=== PATIENT | male | born 1985 | race Caucasian/White ===

== ENCOUNTER → 2021-06-07 | Outpatient (CLI) | payer BC | END | disposition home or self-care (01) | LOC: RAD 12:22 | PROVIDERS: ATTEND Nurse Practitioner Family | DX: M25.562 Pain in left knee (principal) ==

== ENCOUNTER 2022-06-13 10:46 | Emergency (ER) | payer BC ==
[~2022-06-13] VITALS: Wt 156.5 kg
[2022-06-13] MEDS ORDERED: MEDROL DOSEPAK4 MG PO (12:17)
[2022-06-13] MEDS ORDERED: CYCLOBENZAPRINE10 MG PO (12:17)
== END 2022-06-13 12:21 | disposition home or self-care (01) ==
LOC: ED 10:46
DX: M54.50 Low back pain, unspecified (principal)

== ENCOUNTER 2022-12-07 11:12 | Emergency (ER) | payer BC ==
[~2022-12-07] VITALS: Wt 146.1 kg
[~2022-12-07 11:12] MED LIST: CYCLOBENZAPRINE10 MG PO; MEDROL DOSEPAK4 MG PO
[2022-12-07] MEDS ORDERED: PREDNISONE50 MG PO (12:58)
== END 2022-12-07 12:59 | disposition home or self-care (01) ==
LOC: ED 11:12
DX: T63.441A Toxic effect of venom of bees, accidental (unintentional), initial encounter (principal); Y92.89 Other specified places as the place of occurrence of the external cause

== ENCOUNTER → 2023-08-25 | Outpatient (CLI) | payer BC ==
[~2023-08-25] MED LIST changes: +PREDNISONE50 MG PO
== END | disposition home or self-care (01) ==
LOC: US 10:52
PROVIDERS: ATTEND Physician Assistant
DX: M79.661 Pain in right lower leg (principal)

== ENCOUNTER → 2025-03-28 | Outpatient (CLI) | payer BC | END | disposition home or self-care (01) | LOC: US 14:14 | PROVIDERS: ATTEND Nurse Practitioner | DX: N50.3 Cyst of epididymis (principal); N50.812 Left testicular pain; N43.3 Hydrocele, unspecified ==